=== PATIENT | female | born 1935 | race Caucasian/White ===

== ENCOUNTER 2017-07-09 12:43 | Inpatient (IN) | payer MEDICARE, OTHER ==
[~2017-07-09] VITALS: Ht 152.4 cm; Wt 49.0 kg
[2017-07-09 13:33] LABS: BASOPHILS % (AUTO) 0.3 % (0-1); EOSINOPHILS # (AUTO) 0.1 X10'3 (0-0.9); EOSINOPHILS % (AUTO) 1.2 % (0-6); HEMATOCRIT 47.7 % (35.0-45.0); HEMOGLOBIN 16.4 g/dl (12.0-16.0); LYMPHOCYTES # (AUTO) 1.6 X10'3 (1.1-4.8); LYMPHOCYTES % (AUTO) 21.1 % (21-51); MEAN CORPUSCULAR HEMOGLOBIN 31.5 PG (27.0-31.0); MEAN CORPUSCULAR HGB CONC 34.3 % (33.0-36.5); MEAN CORPUSCULAR VOLUME 91.8 FL (78-98); MEAN PLATELET VOLUME 8.9 FL (7.4-10.4); MONOCYTES # (AUTO) 0.4 X10'3 (0-0.9); MONOCYTES % (AUTO) 5.7 % (2-12); NEUTROPHILS # (AUTO) 5.3 X10'3 (1.8-7.7); NEUTROPHILS % (AUTO) 71.7 % (42-75); PLATELET COUNT 254 X10'3 (140-440); RED BLOOD COUNT 5.19 X10'6 (4.20-5.60); RED CELL DISTRIBUTION WIDTH 13.2 % (11.5-14.5); WHITE BLOOD COUNT 7.4 X10'3 (4.5-11.0)
[2017-07-09 13:49] LABS: PARTIAL THROMBOPLASTIN TIME 26 SECONDS (22-32); PROTHROMBIN TIME 10.2 SECONDS (9.0-12.0)
[2017-07-09 13:56] LABS: ANION GAP 11 (8-16); BLOOD UREA NITROGEN 23 MG/DL (7-18); BUN/CREATININE RATIO 25.3 (6.6-38.0); CHLORIDE 104 MMOL/L (99-107); CREATININE 0.91 MG/DL (0.40-0.90); GLUCOSE 131 MG/DL (70-104); POTASSIUM 3.8 MMOL/L (3.5-5.1); SODIUM 142 MMOL/L (135-145); TOTAL CARBON DIOXIDE 27.3 MMOL/L (24-32)
[2017-07-09 13:57] LABS: ALANINE AMINOTRANSFERASE 39 U/L (12-78); ALBUMIN 4.1 G/DL (3.4-5.0); ALBUMIN/GLOBULIN RATIO 1.1 (1.1-1.5); ALKALINE PHOSPHATASE 64 IU/L (46-116); ASPARTATE AMINO TRANSFERASE 28 U/L (10-37); BILIRUBIN,TOTAL 0.6 MG/DL (0.1-1.0); CALCIUM 9.6 MG/DL (8.5-10.1); TOTAL PROTEIN 7.7 G/DL (6.4-8.2); eGFR 59 ML/MIN
[2017-07-09] MEDS ORDERED: nitroGLYCERIN 0.4mg/hour patch TD ONE (15:30)
[2017-07-09] MEDS ORDERED: aspirin 81mg tab.chew PO ONE (15:30)
[2017-07-09] MEDS ORDERED: normal saline 1000ml 1,000 ML IV SCH (15:31)
[2017-07-09] MEDS ORDERED: magnesium hydroxide 30ml (MOM) UD suspension PO PRN (15:35)
[2017-07-09] MEDS ORDERED: potassium Cl 40MEQ/NS 500ml 500 ML IV PRN ×2 (15:35)
[2017-07-09] MEDS ORDERED: mag hydrox/Alum hydrox/simeth 30ml oral suspension PO PRN (15:35)
[2017-07-09] MEDS ORDERED: magnesium Cl slow-release 64mg tablet PO PRN (15:35)
[2017-07-09] MEDS ORDERED: nitroGLYCERIN 0.4mg SUBLingual tab SL PRN ×2 (15:35)
[2017-07-09] MEDS ORDERED: regadenoson 0.4mg/5ml syringe IV ONE (15:35)
[2017-07-09] MEDS ORDERED: ondansetron/PF 4mg/2ml inj IV PRN (15:35)
[2017-07-09] MEDS ORDERED: magnesium 2GM in 50ml NS 50 ML IV PRN (15:35)
[2017-07-09] MEDS ORDERED: acetaminophen 325mg tablet PO PRN ×2 (15:35)
[2017-07-09] MEDS ORDERED: magnesium 4gm in 100ml NS 100 ML IV PRN (15:35)
[2017-07-09] MEDS ORDERED: potassium Cl 20 mEq SR tablet PO PRN ×2 (15:35)
[2017-07-09] MEDS ORDERED: aminophylline 250mg/10ml inj. IV PRN (15:35)
[2017-07-09] MEDS ORDERED: morphine 4 MG/ML inj SYRINge IV PRN ×2 (15:35)
[2017-07-09] MEDS ORDERED: metoprolol tartrate 1mg/ml inj IV PRN (15:35)
[2017-07-09] MEDS ORDERED: diltiazem 5mg/ml 5ml inj. IV ONE ×2 (16:05→18:00)
[2017-07-09] MEDS ORDERED: verapamil 2.5 mg/ml inj IV ONE ×2 (16:15→18:20)
[2017-07-09] MEDS ORDERED: ALPR-624 PO (16:23)
[2017-07-09] MEDS ORDERED: APIX2.5T PO (16:23)
[2017-07-09] MEDS ORDERED: EZET10TA13 PO (16:23)
[2017-07-09] MEDS ORDERED: OLME20TA14 PO (16:23)
[2017-07-09] MEDS: diltiazem-D5W 100mg/100ml 100 ML IV SCH (17:14)
[2017-07-09] MEDS: K and/or MAG REPLACEMENT MC SCH (19:41)
[2017-07-09] MEDS ORDERED: regadenoson 0.4mg/5ml syringe IV PRN (20:00)
[2017-07-09 20:08] LABS: MAGNESIUM 2.2 MG/DL (1.5-2.4)
[2017-07-09] MEDS: apixaban 2.5mg tablet PO SCH (20:18)
[2017-07-09] MEDS: diltiazem 30mg tablet PO SCH (20:18)
[2017-07-09] MEDS ORDERED: temazepam 15mg capsule PO PRN (21:00)
[2017-07-10] VITALS (14 sets, daily range): BP systolic 101–186; BP diastolic 36–78
[2017-07-10] MEDS: diltiazem-D5W 100mg/100ml 100 ML IV SCH (01:10)
[2017-07-10] MEDS: diltiazem 30mg tablet PO SCH ×3 (01:51→14:16)
[2017-07-10 02:07] LABS: ALBUMIN 3.6 G/DL (3.4-5.0); ANION GAP 11 (8-16); BLOOD UREA NITROGEN 33 MG/DL (7-18); BUN/CREATININE RATIO 29.7 (6.6-38.0); CALCIUM 9.7 MG/DL (8.5-10.1); CHLORIDE 106 MMOL/L (99-107); CHOL/HDL RATIO 4.8 (0.00-4.99); CHOLESTEROL 222 MG/DL (0-200); CREATININE 1.11 MG/DL (0.40-0.90); GLUCOSE 108 MG/DL (70-104); HDL CHOLESTEROL 46 MG/DL (35-60); LDL CHOLESTEROL 142 MG/DL (50-100); MAGNESIUM 2.1 MG/DL (1.5-2.4); POTASSIUM 3.8 MMOL/L (3.5-5.1); SODIUM 142 MMOL/L (135-145); TOTAL CARBON DIOXIDE 25.2 MMOL/L (24-32); TRIGLYCERIDES 249 MG/DL (20-135); eGFR 47 ML/MIN
[2017-07-10 02:08] LABS: HEMATOCRIT 42.3 % (35.0-45.0); HEMOGLOBIN 14.7 g/dl (12.0-16.0); MEAN CORPUSCULAR HEMOGLOBIN 32.3 PG (27.0-31.0); MEAN CORPUSCULAR HGB CONC 34.8 % (33.0-36.5); MEAN CORPUSCULAR VOLUME 92.9 FL (78-98); MEAN PLATELET VOLUME 9.7 FL (7.4-10.4); PLATELET COUNT 255 X10'3 (140-440); RED BLOOD COUNT 4.55 X10'6 (4.20-5.60); RED CELL DISTRIBUTION WIDTH 13.7 % (11.5-14.5); WHITE BLOOD COUNT 8.8 X10'3 (4.5-11.0)
[2017-07-10] MEDS ORDERED: losartan 50mg tablet PO SCH (08:00)
[2017-07-10] MEDS: K and/or MAG REPLACEMENT MC SCH (08:00)
[2017-07-10] MEDS ORDERED: ezetimibe 10mg tablet PO SCH (08:00)
[2017-07-10] MEDS: apixaban 2.5mg tablet PO SCH (08:16)
[2017-07-10] MEDS ORDERED: aspirin 325mg tablet PO SCH (08:30)
[2017-07-10] MEDS ORDERED: regadenoson 0.4mg/5ml syringe IV ONE (09:49)
[2017-07-10] MEDS ORDERED: aminophylline inj. 0 ML IV ONE (09:49)
[2017-07-10] MEDS ORDERED: ASPI-611 PO (15:17)
[2017-07-10] MEDS ORDERED: DILT30TA5 PO (15:17)
== END 2017-07-10 16:53 | disposition home health service (06) | DRG 309 ==
LOC: ER 12:44 → ED HOLD 15:31 → PCU 3S 07-10 00:53
PROVIDERS: ADMIT Family Medicine; ATTEND Family Medicine
PROC: 4A02XM4 Measurement of Cardiac Total Activity, External Approach (ICD-10-PCS; principal; 2017-07-10)
PROC: 3E073KZ Introduction of Other Diagnostic Substance into Coronary Artery, Percutaneous Approach (ICD-10-PCS; 2017-07-10)
DX: I48.91 Unspecified atrial fibrillation (principal); I20.0 Unstable angina; E11.51 Type 2 diabetes mellitus with diabetic peripheral angiopathy without gangrene; E55.9 Vitamin D deficiency, unspecified; E78.00 Pure hypercholesterolemia, unspecified; E78.5 Hyperlipidemia, unspecified; I10 Essential (primary) hypertension; J45.909 Unspecified asthma, uncomplicated; K21.9 Gastro-esophageal reflux disease without esophagitis; M81.0 Age-related osteoporosis without current pathological fracture; Z60.2 Problems related to living alone; Z90.711 Acquired absence of uterus with remaining cervical stump; Z88.8 Allergy status to other drugs, medicaments and biological substances; Z79.899 Other long term (current) drug therapy; Z79.01 Long term (current) use of anticoagulants; Z82.49 Family history of ischemic heart disease and other diseases of the circulatory system
CPT/HCPCS: 36415; 71045; 78452; 80048; 80053; 80061; 83036; 83735; 84100; 84439; 84443; 84484; 85025; 85027; 85610; 85730; 93005; 93017; 93306; 99285; A9500; J0280; J3490; J7030

== ENCOUNTER 2017-12-04 08:41 | Day surgery (SDC) | payer MEDICARE, OTHER ==
[2017-12-03 12:57] LABS: PARTIAL THROMBOPLASTIN TIME 25 SECONDS (22-32); PROTHROMBIN TIME 10.3 SECONDS (9.0-12.0)
[2017-12-03 12:59] LABS: HEMOGLOBIN 15.8 g/dl (12.0-16.0); MEAN CORPUSCULAR HEMOGLOBIN 32.3 PG (27.0-31.0); MEAN CORPUSCULAR HGB CONC 34.4 % (33.0-36.5); MEAN CORPUSCULAR VOLUME 93.8 FL (78-98); MEAN PLATELET VOLUME 9.6 FL (7.4-10.4); PLATELET COUNT 271 X10'3 (140-440); RED BLOOD COUNT 4.91 X10'6 (4.20-5.60); RED CELL DISTRIBUTION WIDTH 13.2 % (11.5-14.5); WHITE BLOOD COUNT 8.6 X10'3 (4.5-11.0)
[2017-12-03 13:03] LABS: ALBUMIN 3.9 G/DL (3.4-5.0); ANION GAP 8 (8-16); BLOOD UREA NITROGEN 18 MG/DL (7-18); BUN/CREATININE RATIO 22.8 (6.6-38.0); CALCIUM 9.4 MG/DL (8.5-10.1); CHLORIDE 102 MMOL/L (99-107); CREATININE 0.79 MG/DL (0.40-0.90); GLUCOSE 94 MG/DL (70-104); POTASSIUM 4.2 MMOL/L (3.5-5.1); SODIUM 140 MMOL/L (135-145); TOTAL CARBON DIOXIDE 30.5 MMOL/L (24-32); eGFR 69 ML/MIN
[2017-12-03 13:59] LABS: LARGE PLATELETS FEW; PLATELET ESTIMATE NORMAL; TOTAL CELLS COUNTED 100
[~2017-12-04] VITALS: Ht 152.4 cm; Wt 48.3 kg
[2017-12-04] VITALS (12 sets, daily range): BP systolic 111–197; BP diastolic 45–91
[~2017-12-04 08:41] MED LIST: ALPR-624 PO; APIX2.5T PO; DILT30TA5 PO; EZET10TA13 PO; OLME20TA14 PO
[2017-12-04] MEDS ORDERED: LIDOcaine/PRILOcaine 5gm cream TP ONE (08:55)
[2017-12-04] MEDS ORDERED: LORazepam 0.5 MG tablet PO PRN (09:00)
[2017-12-04] MEDS ORDERED: diphenhydrAMINE 25mg capsule PO PRN (09:00)
[2017-12-04] MEDS ORDERED: normal saline 1000ml 1,000 ML IV SCH (09:00)
[2017-12-04] MEDS ORDERED: RANI150C4 PO (09:49)
[2017-12-04] MEDS ORDERED: CARSR60C PO (09:49)
[2017-12-04] MEDS ORDERED: CALC500T11 PO (09:58)
[2017-12-04] MEDS ORDERED: BIO TEARS PO (09:58)
[2017-12-04] MEDS ORDERED: ACET-812 PO (09:58)
[2017-12-04] MEDS ORDERED: CHOL10002 PO (09:58)
[2017-12-04] MEDS ORDERED: diphenhydrAMINE 25mg capsule PO ONE (10:05)
[2017-12-04] MEDS ORDERED: fentaNYL/PF 50MCG/1 ML 2ML syringe ONE (10:05)
[2017-12-04] MEDS ORDERED: heparin 1,000unit/ml 10ml vial 10 ML ONE (10:05)
[2017-12-04] MEDS ORDERED: midazolam 2 mg/2 ml injection ONE (10:05)
[2017-12-04] MEDS ORDERED: nitroGLYCERIN-Tridil 50MG/D5W 250 ML IV ONE (10:05)
[2017-12-04] MEDS ORDERED: verapamil 2.5 mg/ml inj IV ONE (10:05)
[2017-12-04] MEDS ORDERED: iohexol 350 MG/ML 50ML vial IV ONE ×2 (10:06→11:06)
[2017-12-04] MEDS ORDERED: iohexol 350MG/ML 100ml bottle IV ONE (10:06)
[2017-12-04] MEDS ORDERED: LIDOcaine 1% 30ml preserv. free vial ONE (10:06)
[2017-12-04] MEDS ORDERED: heparin 25,000 UNIT/D5W 250ml 0 ML IV ONE (10:49)
[2017-12-04] MEDS ORDERED: hydrALAZINE 20mg/ml inj. IV ONE (11:12)
[2017-12-04 13:41] LABS: ISTAT Hct MIX 42 %PCV (35-48); ISTAT O2 SATURATION MIX VENOUS 71 % (60-80); ISTAT SOURCE MIX
[2017-12-04 13:41] LABS: ISTAT HGB ART 14.3 g/dl (12.0-16.0); ISTAT Hct ART 42 %PCV (35-48); ISTAT O2 SATURATION ARTERIAL 97 % (95-98); ISTAT SOURCE ART
[2017-12-04] MEDS ORDERED: acetaminophen 325mg tablet PO PRN (17:25)
[2017-12-04] MEDS ORDERED: losartan 50mg tablet PO ONE (18:30)
== END 2017-12-04 19:00 | disposition home or self-care (01) ==
LOC: SSTAY O 08:41
PROVIDERS: ATTEND Internal Medicine Cardiovascular Disease
DX: I25.118 Atherosclerotic heart disease of native coronary artery with other forms of angina pectoris (principal); E78.5 Hyperlipidemia, unspecified; I48.0 Paroxysmal atrial fibrillation; I25.2 Old myocardial infarction; J45.998 Other asthma; K21.9 Gastro-esophageal reflux disease without esophagitis; E11.22 Type 2 diabetes mellitus with diabetic chronic kidney disease; M81.0 Age-related osteoporosis without current pathological fracture; I12.9 Hypertensive chronic kidney disease with stage 1 through stage 4 chronic kidney disease, or unspecified chronic kidney disease; N18.9 Chronic kidney disease, unspecified; E11.51 Type 2 diabetes mellitus with diabetic peripheral angiopathy without gangrene; E55.9 Vitamin D deficiency, unspecified; Z95.828 Presence of other vascular implants and grafts; Z90.710 Acquired absence of both cervix and uterus; Z88.5 Allergy status to narcotic agent; Z88.4 Allergy status to anesthetic agent; Z79.891 Long term (current) use of opiate analgesic; Z88.1 Allergy status to other antibiotic agents; Z90.711 Acquired absence of uterus with remaining cervical stump; Z86.79 Personal history of other diseases of the circulatory system; Z79.01 Long term (current) use of anticoagulants; Z79.82 Long term (current) use of aspirin; Z79.899 Other long term (current) drug therapy; Z98.890 Other specified postprocedural states; Z82.49 Family history of ischemic heart disease and other diseases of the circulatory system; Z81.8 Family history of other mental and behavioral disorders
CPT/HCPCS: 36415; 80048; 82803; 85014; 85025; 85610; 85730; 93005; 93460; 99152; 99153; A6257; A6258; C1769; J0360; J1644; J2250; J3010; J3490; J7030; Q0163; Q9967

== ENCOUNTER 2017-12-25 07:04 | Day surgery (SDC) | payer MEDICARE, OTHER ==
[2017-12-24 12:26] LABS: BASOPHILS % (AUTO) 0.4 % (0-1); EOSINOPHILS # (AUTO) 0.2 X10'3 (0-0.9); HEMATOCRIT 45.7 % (35.0-45.0); HEMOGLOBIN 15.5 g/dl (12.0-16.0); LYMPHOCYTES # (AUTO) 1.8 X10'3 (1.1-4.8); LYMPHOCYTES % (AUTO) 19.6 % (21-51); MEAN CORPUSCULAR HEMOGLOBIN 31.9 PG (27.0-31.0); MEAN CORPUSCULAR VOLUME 93.8 FL (78-98); MEAN PLATELET VOLUME 9.4 FL (7.4-10.4); MONOCYTES # (AUTO) 0.6 X10'3 (0-0.9); MONOCYTES % (AUTO) 7.2 % (2-12); NEUTROPHILS # (AUTO) 6.4 X10'3 (1.8-7.7); NEUTROPHILS % (AUTO) 70.8 % (42-75); PLATELET COUNT 264 X10'3 (140-440); RED BLOOD COUNT 4.87 X10'6 (4.20-5.60); RED CELL DISTRIBUTION WIDTH 13.3 % (11.5-14.5)
[2017-12-24 12:35] LABS: PARTIAL THROMBOPLASTIN TIME 25 SECONDS (22-32); PROTHROMBIN TIME 10.6 SECONDS (9.0-12.0)
[2017-12-24 12:37] LABS: ANION GAP 7 (8-16); BLOOD UREA NITROGEN 21 MG/DL (7-18); BUN/CREATININE RATIO 26.9 (6.6-38.0); CALCIUM 8.8 MG/DL (8.5-10.1); CHLORIDE 104 MMOL/L (99-107); CREATININE 0.78 MG/DL (0.40-0.90); GLUCOSE 97 MG/DL (70-104); SODIUM 141 MMOL/L (135-145); eGFR 70 ML/MIN
[~2017-12-25] VITALS: Ht 152.4 cm; Wt 48.4 kg
[~2017-12-25 07:04] MED LIST changes: +ACET-812 PO; -ALPR-624 PO; +BIO TEARS PO; +CALC500T11 PO; +CARSR60C PO; +CHOL10002 PO; -DILT30TA5 PO; +RANI150C4 PO; +etomidate 2mg/ml inj. ONE; +rocuronium 10mg/ml inj IV ONE; +sod chloride 0.9% 10ml flush syringe IV ONE
[2017-12-25] MEDS ORDERED: normal saline 1000ml 1,000 ML IV SCH (07:40)
[2017-12-25] MEDS ORDERED: LORazepam 0.5 MG tablet PO PRN (07:40)
[2017-12-25] MEDS ORDERED: diphenhydrAMINE 25mg capsule PO PRN (07:40)
[2017-12-25 09:00] VITALS: BP 151/91
[2017-12-25] MEDS ORDERED: sodium bicarbonate (8.4%) 1 mEq/ml syringe ONE (09:00)
[2017-12-25] MEDS ORDERED: epiNEPHrine 0.1mg/ml 10ml syringe ONE (09:00)
[2017-12-25] MEDS ORDERED: magnesium sulf 1 GM/2 ML ONE (09:00)
[2017-12-25] MEDS ORDERED: ATOR10TA PO (09:33)
[2017-12-25] MEDS ORDERED: SOTA80TA73 PO (09:33)
[2017-12-25] MEDS ORDERED: nitroGLYCERIN-Tridil 50MG/D5W 250 ML IV ONE (09:46)
[2017-12-25] MEDS ORDERED: fentaNYL/PF 50MCG/1 ML 2ML syringe ONE (09:46)
[2017-12-25] MEDS ORDERED: iohexol 350 MG/1 ML 200ml bottle ONE ×3 (09:47→13:04)
[2017-12-25] MEDS ORDERED: midazolam 2 mg/2 ml injection ONE (09:47)
[2017-12-25] MEDS ORDERED: heparin 1,000unit/ml 10ml vial 10 ML ONE ×2 (09:47→13:27)
[2017-12-25] MEDS ORDERED: lidocaine 1%/epinephrine 1:100,000 injection 50ml vial ONE (09:48)
[2017-12-25] MEDS ORDERED: heparin 1,000 UNITS/NS 500ml 500 ML ONE (11:22)
[2017-12-25] MEDS ORDERED: ondansetron/PF 4mg/2ml inj ONE (11:44)
[2017-12-25] MEDS ORDERED: ticagrelor 90mg tablet ONE (12:26)
[2017-12-25] MEDS ORDERED: DOPamine 400mg/D5W 250ml 250 ML IV ONE (12:56)
== END 2017-12-25 15:07 | disposition expired ==
LOC: SSTAY O 07:04
PROVIDERS: ATTEND Internal Medicine Cardiovascular Disease
DX: I25.118 Atherosclerotic heart disease of native coronary artery with other forms of angina pectoris (principal); I10 Essential (primary) hypertension; E78.5 Hyperlipidemia, unspecified; I73.89 Other specified peripheral vascular diseases; I48.0 Paroxysmal atrial fibrillation; E55.9 Vitamin D deficiency, unspecified; K21.9 Gastro-esophageal reflux disease without esophagitis; M81.0 Age-related osteoporosis without current pathological fracture; J45.998 Other asthma; Z90.710 Acquired absence of both cervix and uterus; Z88.5 Allergy status to narcotic agent; Z88.6 Allergy status to analgesic agent; Z88.8 Allergy status to other drugs, medicaments and biological substances; Z72.89 Other problems related to lifestyle; Z88.4 Allergy status to anesthetic agent; Z98.41 Cataract extraction status, right eye; Z98.42 Cataract extraction status, left eye; Z90.711 Acquired absence of uterus with remaining cervical stump; Z79.891 Long term (current) use of opiate analgesic; Z88.1 Allergy status to other antibiotic agents; Z79.01 Long term (current) use of anticoagulants; Z95.828 Presence of other vascular implants and grafts; Z79.82 Long term (current) use of aspirin; Z79.899 Other long term (current) drug therapy; Z98.890 Other specified postprocedural states; Z82.49 Family history of ischemic heart disease and other diseases of the circulatory system; Z82.0 Family history of epilepsy and other diseases of the nervous system
CPT/HCPCS: 36415; 80048; 85025; 85347; 85610; 85730; 92920; 92921; 92950; 93005; 94760; 99152; 99153; A6213; A6257; C1725; C1769; C1874; C9600; J0171; J1265; J1644; J2250; J2405; J3010; J3475; J3490; J7030; Q0163; Q9967; A4620